=== PATIENT | female | born 1995 | race African-American/Black ===

== ENCOUNTER 2017-06-02 10:42 | Emergency (ER) | payer OTHER ==
[~2017-06-02] VITALS: Ht 172.7 cm; Wt 47.6 kg
[~2017-06-02 10:42] MED LIST: AMOXICILLIN500 MG ORAL; GENTAK5 ML RIGHT EYE; IBUPROFEN600 MG ORAL; NKM
[2017-06-02] MEDS ORDERED: AUGMENTIN 875-1 EAC1 ORAL (11:02)
[2017-06-02] MEDS ORDERED: IBUPROFEN600 MG ORAL (11:02)
[2017-06-02] MEDS ORDERED: NORCO 5-325 TA1 EACH ORAL (11:02)
[2017-06-02] MEDS ORDERED: Unasyn 3gm Inj ONE (11:05)
[2017-06-02] MEDS ORDERED: Ampicillin/Sulbactam Sod 3 GM in NS 110 ML IVPB ONE (11:15)
[2017-06-02 11:27] VITALS: BP 124/79
--- NOTE | 2017-06-02 11:33 | Emergency Room Report ---
History of Present Illness General Chief Complaint: Sore Throat Source: Patient Present Illness HPI Patient presents emergency department today complaining of 3 days of worsening sore throat. Patient has history peritonsillar abscess. She states that she has subjective fevers and chills as well. She has painful swallowing. Symptoms noted to be moderate to severe. No other modifying factors. No other associated signs and symptoms. No other complaints were noted. Allergies: Coded Allergies: No Known Allergies (Unverified , 07/18/13) Patient History PMH Narrative Peritonsillar abscess Past Surgical History: none Pertinent Family History: none Social History: Denies: alcohol use, drug use, smoking Last Menstrual Period: 05/29/17 Reviewed Nursing Documentation: PMH: Agreed, PSxH: Agreed Nursing Documentation-PMH Past Medical History: No History, Except For Review of Systems All Other Systems: negative except mentioned in HPI Physical Exam Vital Signs Date Time Temp Pulse Resp B/P Pulse Ox O2 Delivery O2 Flow Rate FiO2 06/02/17 10:51 98.6 105 14 124/79 99 Room Air Sp02 EP Interpretation: reviewed, normal General Appearance: normal inspection, well appearing, no apparent distress, alert Head: atraumatic Eyes: bilateral eye normal inspection ENT: hearing grossly normal, normal voice, tonsillar swelling - left, pharyngeal erythema, tonsillar exudate Neck: normal inspection, full range of motion, supple, no bony tend Respiratory: normal inspection, lungs clear, normal breath sounds, no respiratory distress, no retraction, no wheezing Cardiovascular #1: regular rate, rhythm, no edema Gastrointestinal: normal inspection, normal bowel sounds, non tender, soft, no guarding, no hernia Genitourinary: no CVA tenderness Musculoskeletal: normal inspection, back normal, normal range of motion Neurologic: normal inspection, alert, responsive, speech normal Psychiatric: normal inspection, judgement/insight normal, mood/affect normal Skin: normal inspection, normal color, no rash Medical Decision Making Diagnostic Impression: Primary Impression: Peritonsillar cellulitis ER Course Patient presents emergency department today complaining of sore throat worse on the left posterior pharynx. Differential diagnoses include abscess, cellulitis , pharyngitis, viral syndrome just to name a few. Given patient's history of peritonsillar abscess I think that this is early peritonsillar cellulitis. I felt the patient would benefit from antibiotics. Patient was given one dose of Unasyn and a prescription for Augmentin. I advised patient that she might need a tonsillectomy. Recommend outpatient followup with ENT.Patient is advised to follow up with primary doctor in 2-3 days and return the emergency room for any worsening symptoms and as needed. Last Vital Signs Date Time Temp Pulse Resp B/P Pulse Ox O2 Delivery O2 Flow Rate FiO2 06/02/17 10:51 98.6 105 14 124/79 99 Room Air Status: improved Disposition: HOME, SELF-CARE Condition: Stable Scripts Ibuprofen* (MOTRIN*) 600 Mg Tablet 600 MG ORAL Q8H Y for For Pain, #30 TAB 0 Refills Prov: FRANKI WAKEFIELD M.D. 06/02/17 Hydrocodone Bit/Acetaminophen 5-325* (NORCO 5-325*) 1 Each Tablet 1 TAB ORAL Q6H Y for For Pain, #10 TAB 0 Refills Prov: FRANKI WAKEFIELD M.D. 06/02/17 Amoxicillin/Potassium Clav 875-125* (AUGMENTIN 875-125 TABLET*) 1 Each Tablet 1 TAB ORAL TWICE A DAY for 10 Days, TAB Prov: FRANKI WAKEFIELD M.D. 06/02/17 Referrals: [facility],REFERRING (PCP) Patient Instructions: Pharyngitis FRANKI WAKEFIELD M.D. Jun 02, 2017 11:33
[2017-06-02 11:48] VITALS: BP 124/79
== END 2017-06-02 11:57 | disposition home or self-care (01) ==
LOC: EMR 11:12
DX: J36 Peritonsillar abscess (principal)
CPT/HCPCS: 96374; 99284; J0295

== ENCOUNTER 2018-01-05 00:01 | Emergency (ER) | payer MEDICAID, OTHER ==
[~2018-01-05] VITALS: Ht 170.2 cm; Wt 71.2 kg
[~2018-01-05 00:01] MED LIST changes: +AUGMENTIN 875-1 EAC1 ORAL; +NORCO 5-325 TA1 EACH ORAL
[2018-01-05] MEDS ORDERED: IBUPROFEN600 MG ORAL (00:22)
--- NOTE | 2018-01-05 00:24 | Emergency Room Report ---
History of Present Illness General Chief Complaint: Sore Throat Source: Patient Present Illness HPI 22-year-old female presents with sore throat for 2 days. States sore throat, +mild dry cough. Pain with swallowing however has still been able to eat/drink. No change in voice. No pain with extension/movement of neck. Denies fever or chills. No sick contacts. Allergies: Coded Allergies: No Known Allergies (Unverified , 07/18/13) Patient History Past Medical History: see triage record Past Surgical History: none Pertinent Family History: none Last Menstrual Period: Dec Reviewed Nursing Documentation: PMH: Agreed, PSxH: Agreed Review of Systems All Other Systems: negative except mentioned in HPI Physical Exam Vital Signs Date Time Temp Pulse Resp B/P (MAP) Pulse Ox O2 Delivery O2 Flow Rate FiO2 01/05/18 00:03 98.7 101 18 123/86 100 Room Air 98.8 Sp02 EP Interpretation: reviewed, normal General Appearance: normal inspection, well appearing, no apparent distress, alert, GCS 15, non-toxic Head: normocephalic, atraumatic Eyes: bilateral eye normal inspection, bilateral eye PERRL, bilateral eye EOMI ENT: uvula midline, pharyngeal erythema, other - no exudates Neck: normal inspection, full range of motion, supple Respiratory: normal inspection, lungs clear, normal breath sounds, no respiratory distress, no retraction, no wheezing, speaking full sentences, chest symmetrical Cardiovascular #1: normal inspection, regular rate, rhythm, no edema, normal capillary refill Cardiovascular #2: 2+ radial (R), 2+ radial (L) Gastrointestinal: normal inspection, non tender, soft, non-distended, no guarding Musculoskeletal: normal inspection, back normal, normal range of motion, non- tender Neurologic: normal inspection, alert, oriented x3, responsive, motor strength/ tone normal, sensory intact, normal gait, speech normal Psychiatric: normal inspection, judgement/insight normal, memory normal Skin: normal inspection, normal color, no rash, warm/dry, well hydrated, normal turgor Medical Decision Making Diagnostic Impression: Primary Impression: Pharyngitis ER Course 22-year-old female with sore throat DDX: Viral vs. infectious mononucleosis vs. bacterial pharyngitis vs. allergies Other serious causes such as [employer] / RPA / deep space neck infection history/physical most consistent with viral pharyngitis Plan: Pain control and Decadron ER course: Patient remains stable in ED. Pt states improvement of pain Disposition: Patient will be discharged to home. Patient will follow up with primary care doctor within 5 days. Strict return precautions discussed with patient such as worsening throat pain/swelling, dysphagia, high fever or chills, shortness of breath, abdominal pain, which may indicate severe illness. Patient verbalized understanding and agreed with plan. Please note that this Emergency Department Report was dictated using [employer] technology software, occasionally this can lead to erroneous entry secondary to interpretation by the dictation equipment. Last Vital Signs Date Time Temp Pulse Resp B/P (MAP) Pulse Ox O2 Delivery O2 Flow Rate FiO2 01/05/18 00:03 98.7 101 18 123/86 100 Room Air 98.8 Disposition: HOME, SELF-CARE Condition: Improved Scripts Ibuprofen* (MOTRIN*) 600 Mg Tablet 600 MG ORAL Q8H Y for For Pain, #30 TAB 0 Refills Prov: Raven Bullard M.D. 01/05/18 Referrals: [facility],REFERRING (PCP) Patient Instructions: Sore Throat Additional Instructions: PLEASE SEE AN ENT DOCTOR IN 1 WEEK Raven Bullard M.D. Jan 05, 2018 00:24
[2018-01-05] MEDS ORDERED: Dexamethasone 4mg/ml vial IM ONE (00:30)
[2018-01-05 00:43] VITALS: BP 123/86
[2018-01-05 00:44] VITALS: BP 123/86
== END 2018-01-05 00:45 | disposition home or self-care (01) ==
LOC: EMR 00:15
DX: J02.9 Acute pharyngitis, unspecified (principal)
CPT/HCPCS: 96372; 99283; J1100